=== PATIENT | male | born 1980 ===

== ENCOUNTER 2019-06-29 12:48 | Emergency (ER) | payer BC ==
[2019-06-29 13:21] VITALS: BP 120/84
--- NOTE | 2019-06-29 14:05 | UC ---
Throat Pain/Nasal Bakari HPI - HPI Summary HPI Summary: pt c/o sore throat starting 06/21. pt states he wants to make sure it is not strep. pt also c/o cough. - History of Current Complaint Chief Complaint: UCRespiratory Stated Complaint: SORE THROAT Time Seen by Provider: 06/29/19 13:40 Pain Intensity: 6 - Allergies/Home Medications Allergies/Adverse Reactions: Allergies Allergy/AdvReac Type Severity Reaction Status Date / Time Penicillins Allergy Unknown Verified 06/29/19 13:22 Reaction Details Home Medications: Home Medications NK [No Home Medications Reported] 06/29/19 [History Confirmed 06/29/19] PMH/Surg Hx/FS Hx/Imm Hx Previously Healthy: Yes - Surgical History Surgical History: Yes Surgery Procedure, Year, and Place: jaw wireing - Family History Known Family History: Positive: Non-Contributory - Social History Alcohol Use: Daily Substance Use Type: None Smoking Status (MU): Never Smoked Tobacco Physical Exam Vital Signs: Initial Vital Signs Temp 98.4 F 06/29/19 13:18 Pulse 72 06/29/19 13:18 Resp 18 06/29/19 13:18 BP 120/84 06/29/19 13:18 Pulse Ox 99 06/29/19 13:18 Discharge ED - Discharge Plan Referrals: No Primary Care Phys,NOPCP [Primary Care Provider] -
--- NOTE | 2019-06-29 14:47 | UC ---
Throat Pain/Nasal Bakari HPI - HPI Summary HPI Summary: Healthy 39 yo with one + week history of sore throat with mild dysphagia. He has a nocturnal cough, but no associated shortness of breath, fever, or chest pain. - History of Current Complaint Chief Complaint: UCRespiratory Stated Complaint: SORE THROAT Time Seen by Provider: 06/29/19 13:40 Hx Obtained From: Patient Onset/Duration: Gradual Onset, Lasting Days Severity: Moderate Pain Intensity: 6 Cough: Nonproductive Associated Signs & Symptoms: Positive: Dysphagia - Epiglottits Risk Factors Epiglottis Risk Factors: Negative - Allergies/Home Medications Allergies/Adverse Reactions: Allergies Allergy/AdvReac Type Severity Reaction Status Date / Time Penicillins Allergy Unknown Verified 06/29/19 13:22 Reaction Details Home Medications: Home Medications NK [No Home Medications Reported] 06/29/19 [History Confirmed 06/29/19] PMH/Surg Hx/FS Hx/Imm Hx Previously Healthy: Yes - Surgical History Surgical History: Yes Surgery Procedure, Year, and Place: jaw wireing - Family History Known Family History: Positive: Other - father has prediabetes - Social History Occupation: Employed Full-time Alcohol Use: Daily Substance Use Type: None Smoking Status (MU): Never Smoked Tobacco Review of Systems All Other Systems Reviewed And Are Negative: Yes Constitutional: Positive: Negative Skin: Positive: Negative ENT: Positive: Sore Throat, Nasal Discharge Respiratory: Positive: Cough Cardiovascular: Positive: Negative Gastrointestinal: Positive: Negative Genitourinary: Positive: Negative Motor: Positive: Negative Neurovascular: Positive: Negative Musculoskeletal: Positive: Negative Neurological: Positive: Negative, Headache Psychological: Positive: Negative Physical Exam Triage Information Reviewed: Yes Appearance: Well-Appearing, No Pain Distress Vital Signs: Initial Vital Signs Temp 98.4 F 06/29/19 13:18 Pulse 72 06/29/19 13:18 Resp 18 06/29/19 13:18 BP 120/84 06/29/19 13:18 Pulse Ox 99 06/29/19 13:18 Eyes: Positive: Conjunctiva Clear ENT: Positive: Pharyngeal erythema. Negative: Tonsillar swelling, Tonsillar exudate Neck: Positive: Supple, Nontender, No Lymphadenopathy Respiratory: Positive: Lungs clear, Normal breath sounds Cardiovascular: Positive: RRR, No Murmur Musculoskeletal Exam: Normal Neurological Exam: Normal Psychological Exam: Normal Skin Exam: Normal Diagnostics - Laboratory Lab Results: rapid strep negative Throat Pain/Nasal Course/Dx - Course Course Of Treatment: continue symptomatic treatment - Differential Dx/Diagnosis Differential Diagnosis/HQI/PQRI: Laryngitis, Pharyngitis, Tonsillitis, URI Provider Diagnosis: Pharyngitis Discharge ED - Sign-Out/Discharge Documenting (check all that apply): Patient Departure All imaging exams completed and their final reports reviewed: No Studies - Discharge Plan Condition: Stable Disposition: HOME Patient Education Materials: Pharyngitis (ED) Referrals: No Primary Care Phys,NOPCP [Primary Care Provider] - Additional Instructions: Continue symptomatic treatment, using warm water and salt gargles and ibuprofen 600mg up to 3 times per day for discomfort. Rapid strep is negative, and findings suggest a viral sore throat. Follow up if you develop fever or shortness of breath. - Billing Disposition and Condition Condition: STABLE Disposition: Home
== END 2019-06-29 15:03 | disposition home or self-care (01) ==
LOC: UCEAST 12:48
DX: J02.9 Acute pharyngitis, unspecified (principal); Z88.0 Allergy status to penicillin
CPT/HCPCS: 87651; 99201; G0463